=== PATIENT | male | born 1995 ===

== ENCOUNTER 2023-09-28 16:53 | Inpatient (IN) | payer OTHER ==
[~2023-09-28] VITALS: Ht 177.8 cm; Wt 69.2 kg
[2023-09-28] MEDS ORDERED: BUSP5TAB20 PO (17:26)
[2023-09-28] MEDS ORDERED: FLUO-342 PO (17:26)
[2023-09-28] MEDS ORDERED: HYDR-4808 PO (17:26)
[2023-09-28] MEDS ORDERED: BUPR1TAB45 SL (17:26)
[2023-09-28] MEDS ORDERED: MIRT-89 PO (17:26)
[2023-09-28 18:06] LABS: BASOPHILS % (AUTO) 0.5 % (0.0-2.0); EOSINOPHILS % (AUTO) 1.6 % (1.0-6.0); HEMATOCRIT 38.5 % (41-53); HEMOGLOBIN 12.9 g/dL (13.5-17.5); LYMPHOCYTES # (AUTO) 2.1 K/uL (1.0-4.8); LYMPHOCYTES % (AUTO) 38.3 % (22.0-44.0); MEAN CORPUSCULAR HEMOGLOBIN 28.5 pg (26.0-34.0); MEAN CORPUSCULAR HGB CONC 33.6 G/dL (31.0-37.0); MEAN CORPUSCULAR VOLUME 85 fL (80-100); MONOCYTES # (AUTO) 0.3 K/uL (0.1-1.0); MONOCYTES % (AUTO) 5.8 % (2.0-9.0); NEUTROPHILS # (AUTO) 2.9 K/uL (1.8-7.7); NEUTROPHILS % (AUTO) 53.8 % (40.0-70.0); PLATELET COUNT (AUTO) 221 K/uL (150-450); RED BLOOD CELL COUNT(AUTO) 4.52 MIL/uL (4.50-5.90); WHITE BLOOD COUNT (AUTO) 5.5 K/uL (4.5-11.0)
[2023-09-28 18:21] LABS: ALCOHOL, BLOOD (SERUM) < 3 mg/dL (0-10)
[2023-09-28 18:25] LABS: ALANINE AMINOTRANSFERASE 25 U/L (12-78); ALKALINE PHOSPHATASE 53 U/L (46-116); ASPARTATE AMINOTRANSFERASE 24 U/L (15-37); BILIRUBIN,TOTAL 0.6 mg/dL (0.1-1.0); CALCIUM, TOTAL 9.2 mg/dL (8.8-10.5); CARBON DIOXIDE 27 mmol/L (22-29); CREATININE 0.86 mg/dL (0.60-1.30); GLOMERULAR FILTR. RATE CALC > 60 mL/min (>60); GLUCOSE,RANDOM 67 mg/dL (70-110); TOTAL PROTEIN, SERUM 7.9 g/dL (6.4-8.2); UREA NITROGEN, BLOOD 14 mg/dL (7-18)
[2023-09-28 18:29] LABS: ANION GAP 8 mmol/L (8-16); CHLORIDE 104 mmol/L (98-107); POTASSIUM 4.1 mmol/L (3.5-5.1); SODIUM SERUM 139 mmol/L (136-145)
[2023-09-28 21:00] VITALS: BP 135/83; PULSE 66; RESP 20; TEMP 98.6
[2023-09-28] MEDS: SODIUM CHLORIDE 0.9% 1,000 ML IV ONE (22:33)
[2023-09-29 04:54] VITALS: BP 108/63; PULSE 55; RESP 18; TEMP 97.6
[2023-09-29] MEDS: SODIUM CHLORIDE 0.9% 1,000 ML IV ONE (06:49)
[2023-09-29] MEDS ORDERED: SODIUM CHLORIDE 0.9% 1,000 ML ONE (06:56)
[2023-09-29] MEDS ORDERED: LIDOCAINE/PF 2% 5 ML VIAL ONE (07:16)
[2023-09-29] MEDS ORDERED: ONDANSETRON HCL 4 MG/2 ML VIAL ONE (07:16)
[2023-09-29] MEDS ORDERED: PROPOFOL 1% 20 ML VIAL IVP ONE (07:16)
[2023-09-29] MEDS ORDERED: MIDAZOLAM HCL 2 MG/2 ML VIAL ONE (07:16)
[2023-09-29] MEDS ORDERED: DEXAMETHASONE SOD PHOS 4 MG/ML VIAL ONE (07:16)
[2023-09-29] MEDS ORDERED: FentaNYL CITRATE PF 100 MCG/2 ML VIAL ONE (07:16)
[2023-09-29] MEDS ORDERED: SUCCINYLCHOLINE CHLORIDE 20 MG/ML 10 ML VIAL ONE (07:16)
[2023-09-29 09:26] VITALS: BP 91/62; PULSE 54; RESP 18; TEMP 97.6
[2023-09-29 11:37] LABS: PH,URINE DRUG SCREEN 5.5 (5.0-8.0)
[2023-09-29 11:50] LABS: ALCOHOL, URINE DRUG SCREEN NEGATIVE (NEGATIVE); AMPHET/METH SCREEN,URINE NEGATIVE (NEGATIVE); BARBITURATE SCREEN, URINE NEGATIVE (NEGATIVE); BENZODIAZEPINES SCREEN,URINE NEGATIVE (NEGATIVE); CANNABINOID SCREEN,URINE NEGATIVE (NEGATIVE); COCAINE SCREEN,URINE NEGATIVE (NEGATIVE); METHADONE SCREEN, URINE NEGATIVE (NEGATIVE); OPIATE SCREEN,URINE NEGATIVE (NEGATIVE); PHENCYCLIDINE SCREEN,URINE NEGATIVE (NEGATIVE)
[2023-09-29] MEDS: MORPHINE SULFATE 2 MG/ML SYRINGE IVP PRN (15:41)
[2023-09-29 19:34] VITALS: BP 109/58; PULSE 68; RESP 18; TEMP 98.4
[2023-09-29] MEDS ORDERED: TRIA16.911 NASAL (21:11)
[2023-09-29] MEDS ORDERED: DOCU-385 PO (21:11)
[2023-09-29] MEDS ORDERED: MULT-1366 PO (21:11)
[2023-09-29] MEDS: PEG 3350/NA SULF,BICARB,CL/KCL 4000 ML SOLUTION PO ONE (23:39)
[2023-09-30 04:36] VITALS: BP 129/78; PULSE 65; RESP 18; TEMP 97.7
[2023-09-30 08:19] VITALS: BP 90/44; PULSE 60; RESP 18; TEMP 97.9
[2023-09-30] MEDS: BUPRENORPHINE HCL/NALOXONE HCL 8-2 MG SUBLINGUAL TABLET SL ONE (16:14)
[2023-09-30 20:11] VITALS: BP 132/86; PULSE 67; RESP 20; TEMP 97.8
[2023-09-30] MEDS: MIRTAZAPINE 15 MG TABLET PO SCH (20:13)
[2023-10-01 04:40] VITALS: BP 103/74; PULSE 54; RESP 18; TEMP 97.6
[2023-10-01] MEDS: BusPIRone HCL 10 MG TABLET PO SCH ×2 (08:15→12:11)
[2023-10-01 08:35] VITALS: BP 105/51; PULSE 60; RESP 19; TEMP 97.5
[2023-10-01] MEDS: BUPRENORPHINE HCL/NALOXONE HCL 8-2 MG SUBLINGUAL TABLET SL SCH (12:10)
[2023-10-01 20:23] VITALS: BP 109/60; PULSE 81; RESP 20; TEMP 98
[2023-10-02 05:32] VITALS: BP 115/54; PULSE 65; RESP 18; TEMP 97.6
[2023-10-02 07:07] LABS: BASOPHILS % (AUTO) 0.8 % (0.0-2.0); EOSINOPHILS % (AUTO) 2.6 % (1.0-6.0); HEMATOCRIT 40.4 % (41-53); HEMOGLOBIN 13.5 g/dL (13.5-17.5); LYMPHOCYTES # (AUTO) 2.9 K/uL (1.0-4.8); LYMPHOCYTES % (AUTO) 59.8 % (22.0-44.0); MEAN CORPUSCULAR HEMOGLOBIN 28.6 pg (26.0-34.0); MEAN CORPUSCULAR HGB CONC 33.4 G/dL (31.0-37.0); MEAN CORPUSCULAR VOLUME 86 fL (80-100); MONOCYTES # (AUTO) 0.3 K/uL (0.1-1.0); MONOCYTES % (AUTO) 6.9 % (2.0-9.0); NEUTROPHILS # (AUTO) 1.5 K/uL (1.8-7.7); NEUTROPHILS % (AUTO) 29.9 % (40.0-70.0); PLATELET COUNT (AUTO) 211 K/uL (150-450); RED BLOOD CELL COUNT(AUTO) 4.72 MIL/uL (4.50-5.90); RED CELL DISTRIBUTION WIDTH 14.2 % (11.5-14.5); WHITE BLOOD COUNT (AUTO) 4.9 K/uL (4.5-11.0)
[2023-10-02 07:20] VITALS: BP 103/58; PULSE 63; RESP 18; TEMP 97.8
[2023-10-02 07:28] LABS: ANION GAP 0 mmol/L (8-16); CALCIUM, TOTAL 8.9 mg/dL (8.8-10.5); CARBON DIOXIDE 36 mmol/L (22-29); CHLORIDE 105 mmol/L (98-107); CREATININE 0.86 mg/dL (0.60-1.30); GLOMERULAR FILTR. RATE CALC > 60 mL/min (>60); GLUCOSE,RANDOM 73 mg/dL (70-110); POTASSIUM 4.2 mmol/L (3.5-5.1); SODIUM SERUM 141 mmol/L (136-145); UREA NITROGEN, BLOOD 11 mg/dL (7-18)
[2023-10-02 07:30] VITALS: BP 103/58; PULSE 63; RESP 18; TEMP 97.8
[2023-10-02 19:49] VITALS: BP 134/70; PULSE 89; RESP 20; TEMP 98.3
== END 2023-10-02 21:16 | DRG 394 ==
LOC: EMS 16:53 → ICUN 19:23 → 6S 20:40
PROVIDERS: ADMIT Internal Medicine; ATTEND Internal Medicine
PROC: 0DJ08ZZ Inspection of Upper Intestinal Tract, Via Natural or Artificial Opening Endoscopic (ICD-10-PCS; principal; 2023-09-28)
DX: T18.9XXA Foreign body of alimentary tract, part unspecified, initial encounter (principal); F11.20 Opioid dependence, uncomplicated; R45.851 Suicidal ideations; F33.2 Major depressive disorder, recurrent severe without psychotic features; F17.210 Nicotine dependence, cigarettes, uncomplicated; F43.12 Post-traumatic stress disorder, chronic; W44.8XXA Other foreign body entering into or through a natural orifice, initial encounter; Y93.89 Activity, other specified; Y92.148 Other place in prison as the place of occurrence of the external cause; Y99.8 Other external cause status; Z63.5 Disruption of family by separation and divorce; Z79.899 Other long term (current) drug therapy
CPT/HCPCS: 71045; 71250; 72192; 74019; 74150; 80048; 80053; 80307; 85025; 85610; 85730; 86850; 86900; 86901; 87081; 99285; G0480; J0330; J1100; J2250; J2270; J2405; J2704; J3010; J3490; J7030; 36415-L1; 36415-TC